=== PATIENT | male | born 1960 | race Asian ===

== ENCOUNTER 2020-08-27 20:23 | Emergency (ER) | payer OTHER ==
[~2020-08-27] VITALS: Ht 175.3 cm; Wt 81.6 kg
--- NOTE | 2020-08-27 20:28 | NUR ---
Patient triaged and placed in the tent. VSS and patient appears in no acute distress at this time. Accompanied by self, awaiting available bed, and MD notified of need for MSE.
--- NOTE | 2020-08-27 20:35 | NUR ---
ER at bedside examining patient.
[2020-08-27 20:49] VITALS: BP_SYST 143
[2020-08-27] MEDS ORDERED: cefTRIAXone 1 GM VIAL IM ONE (21:00)
[2020-08-27] MEDS ORDERED: LIDOCAINE 1%, 20 ML MDV 20 ML ONE (21:12)
[2020-08-27] MEDS ORDERED: cefTRIAXone 1 GM VIAL ONE (21:12)
[2020-08-27 21:59] VITALS: BP_SYST 142
--- NOTE | 2020-08-27 21:59 | NUR ---
Patient given written and verbal discharge instructions and verbalizes understanding. ER MD discussed with patient the results and treatment provided. Patient in stable condition. ID arm band removed. NO Rx of given. Patient educated on pain management and to follow up with PMD. Pain Scale 2/10. Opportunity for questions provided and answered. Medication side effect fact sheet provided.
== END 2020-08-27 21:59 | disposition home or self-care (01) ==
LOC: SED 20:23
DX: U07.1 COVID-19 (principal); I10 Essential (primary) hypertension
CPT/HCPCS: 36415; 71045; 87426; 96374; 99284; C9803; J0696; J2001; U0003